=== PATIENT | male | born 1990 | race Two or more races ===

== ENCOUNTER 2017-03-01 13:04 | Emergency (ER) | payer OTHER ==
[~2017-03-01] VITALS: Ht 175.3 cm; Wt 97.5 kg
--- NOTE | 2017-03-01 13:30 | PHYS DOC ---
Adult General Chief Complaint Chief Complaint: ANKLE PROBLEM HPI HPI Patient is a 26 year old male presents the ED complaining of left ankle injury times one hour ago. Patient states a palate at his workplace fell and hit his left ankle. Describes the pain as sharp. Rates the pain as 8 out of 10. Denies fever, nausea/vomiting, laceration, head/neck injury. Review of Systems Review of Systems Constitutional: Denies fever or chills [] Eyes: Denies change in visual acuity, redness, or eye pain [] HENT: Denies nasal congestion or sore throat [] Respiratory: Denies cough or shortness of breath [] Cardiovascular: No additional information not addressed in HPI [] GI: Denies abdominal pain, nausea, vomiting, bloody stools or diarrhea [] : Denies dysuria or hematuria [] Musculoskeletal: Denies back pain. Complains of left ankle pain [] Integument: Denies rash or skin lesions [] Neurologic: Denies headache, focal weakness or sensory changes [] Endocrine: Denies polyuria or polydipsia [] Allergies Allergies Allergies Coded Allergies Type Severity Reaction Last Updated Verified No Known Drug Allergies 03/01/17 No Physical Exam Physical Exam Constitutional: Well developed, well nourished, no acute distress, non-toxic appearance. [] HENT: Normocephalic, atraumatic, bilateral external ears normal, oropharynx moist, no oral exudates, nose normal. [] Eyes: PERRLA, EOMI, conjunctiva normal, no discharge. [] Neck: Normal range of motion, no tenderness, supple, no stridor. [] Cardiovascular:Heart rate regular rhythm, no murmur [] Lungs & Thorax: Bilateral breath sounds clear to auscultation [] Abdomen: Bowel sounds normal, soft, no tenderness, no masses, no pulsatile masses. [] Skin: Warm, dry, no erythema, no rash. [] Back: No tenderness, no CVA tenderness. [] Extremities: MILD MEDIAL LEFT ANKLE TENDERNESS/SWELLING. no cyanosis, no clubbing, ROM intact, no edema. [] Neurologic: Alert and oriented X 3, normal motor function, normal sensory function, no focal deficits noted. [] Psychologic: Affect normal, judgement normal, mood normal. [] Current Patient Data Vital Signs Vital Signs Date Time Temp Pulse Resp B/P (MAP) Pulse Ox O2 Delivery O2 Flow Rate FiO2 03/01/17 13:33 98.2 80 18 96 Room Air 98.2 EKG EKG [] Radiology/Procedures Radiology/Procedures PROCEDURE: ANKLE LEFT 3V 3 views left ankle 03/01/2017 3:28 PM Indication: injury Comparison: None Findings: There is no fracture or dislocation identified. Articular surfaces are uninterrupted. Diffuse soft tissue edema is noted surrounding the ankle. Impression: No evidence of acute osseous abnormality [] Course & Med Decision Making Course & Med Decision Making Pertinent Labs and Imaging studies reviewed. (See chart for details) []Discussed imaging findings with patient. Patient's pain improved. Irving wrap placed. Neurovascular intact post placement. Crutches given. Discussed symptomatic treatment. Discussed follow-up and reasons to return to the ED. Patient understands and agrees with plan. Dragon Disclaimer Dragon Disclaimer This electronic medical record was generated, in whole or in part, using a voice recognition dictation system. Departure Departure Impression: Primary Impression: Ankle sprain Disposition: 01 HOME, SELF-CARE Condition: IMPROVED Referrals: YANCY MCNAIR MD Patient Instructions: Ankle Sprain Scripts Ibuprofen (IBUPROFEN) 800 Mg Tablet 800 MG PO PRN Q6HRS Y for INFLAMMATION, #14 TAB Prov: COLT SHUKLA 03/01/17 COLT SHUKLA Mar 01, 2017 13:30
[2017-03-01 13:33] VITALS: BP 122/70
--- NOTE | 2017-03-01 14:24 | RAD ---
3 views left ankle 03/01/2017 3:28 PM Indication: injury Comparison: None Findings: There is no fracture or dislocation identified. Articular surfaces are uninterrupted. Diffuse soft tissue edema is noted surrounding the ankle. Impression: No evidence of acute osseous abnormality
[2017-03-01] MEDS ORDERED: IBUP-1060 PO (14:32)
== END 2017-03-01 15:15 | disposition home or self-care (01) ==
LOC: ER 13:04
DX: S93.402A Sprain of unspecified ligament of left ankle, initial encounter (principal); W20.8XXA Other cause of strike by thrown, projected or falling object, initial encounter; Y93.89 Activity, other specified; Y99.0 Civilian activity done for income or pay; Y92.69 Other specified industrial and construction area as the place of occurrence of the external cause
CPT/HCPCS: 73610; 99284